=== PATIENT | male | born 1955 | race Caucasian/White ===

== ENCOUNTER 2023-03-16 11:01 | Emergency (ER) | payer MEDICARE, OTHER ==
[2023-03-16] MEDS ORDERED: Silver Nitrate Application 1 EACH ONE (11:44)
== END 2023-03-16 12:32 | disposition home or self-care (01) ==
LOC: MADERS 11:01
DX: R04.0 Epistaxis (principal); E78.00 Pure hypercholesterolemia, unspecified; I25.10 Atherosclerotic heart disease of native coronary artery without angina pectoris; I10 Essential (primary) hypertension; Z79.01 Long term (current) use of anticoagulants
CPT/HCPCS: 30901

== ENCOUNTER 2024-11-09 13:13 | Emergency (ER) | payer MEDICARE ==
[2024-11-09] MEDS ORDERED: Dexamethasone 10 MG/ML VIAL ONE (13:57)
[2024-11-09] MEDS ORDERED: Ipratropium/Albuterol 3 ML NEB ONE (13:57)
[2024-11-09] MEDS ORDERED: Ketorolac Tromethamine 30 MG (1 mL) VIAL ONE (13:58)
== END 2024-11-09 14:17 | disposition home or self-care (01) ==
LOC: MADERS 13:13
DX: J44.1 Chronic obstructive pulmonary disease with (acute) exacerbation (principal); I48.91 Unspecified atrial fibrillation; E78.00 Pure hypercholesterolemia, unspecified; I10 Essential (primary) hypertension; I25.10 Atherosclerotic heart disease of native coronary artery without angina pectoris; Z79.899 Other long term (current) drug therapy; Z79.82 Long term (current) use of aspirin; Z55.6 Problems related to health literacy
CPT/HCPCS: 71046; 96372; 99283; J1100; J1885; J7620